=== PATIENT | female | born 1950 | race Caucasian/White ===

== ENCOUNTER 2017-04-05 16:51 | Emergency (ER) | payer MEDICARE, OTHER ==
--- NOTE | 2017-04-05 17:13 | ERPHSYRPT ---
- History of Present Illness Time Seen by Provider: 04/05/17 17:10 Source: patient, family Exam Limitations: no limitations Patient Subjective Stated Complaint: pt states she is currently being treated for bronhitis. pt states coughing became worse last pm. states she has had fever an chills. Triage Nursing Assessment: pt pink, warm, moist to touch. lung sounds clear and equal. pt afebrile. Physician History: The patient is a 67-year-old female with her complaining of a cough for about one week. Her illness began about a week ago was feeling very achy. It then progressed to a cough. She saw her medical doctor and was given doxycycline and prednisone 3 days ago. She's had a very difficult time sleeping at night because of the cough. She also states she's had a fever with this as well as sweats. She uses a sleep apnea machine at night. Her past medical history is also significant for GERD and high cholesterol. She did receive an influenza vaccination this year. Timing/Duration: week(s) (1) Cough Quality/Degree: moderate, dry cough Possible Cause: occasional episodes Modifying Factors: Improves With: coughing Associated Symptoms: fever, chills, muscle aches Allergies/Adverse Reactions: penicillin Allergy (Intermediate, Verified 04/05/17 16:58) Hives Home Medications: Aspirin 81 mg PO DAILY 05/23/15 [History] Atorvastatin Calcium 20 mg PO DAILY 05/23/15 [History] Glucosamine HCl/Gluc Bond [Glucosamine Complex Caplet] 1 each PO DAILY 05/23/15 [ History] Multivitamin [Multivitamins] 1 cap PO DAILY 05/23/15 [History] Naproxen Sodium 220 mg [Aleve 220 MG] 0 mg PO DIRECTIONS UNKNOWN 05/23/15 [History] Pantoprazole Sodium [Protonix] 20 mg PO DAILY 05/23/15 [History] Calcium Carbonate/Vitamin D3 [Calcium 500 + Vit D Caplet] 1 each PO DAILY [History] Doxycycline Hyclate 100 mg [Vibramycin 100 MG] 100 mg PO BID 04/05/17 [ History] Furosemide 20 mg [Lasix 20 mg] 20 mg PO UD 04/05/17 [History] [place]-3/Dha/Epa/Fish Oil [[place]-3 Fish Oil 1,200 mg Sfgl] 1,200 mg PO DAILY [History] Prednisone 20 mg [Deltasone 20 mg] 20 mg PO UD 04/05/17 [History] Zinc 15 mg PO DAILY 04/05/17 [History] Hx Tetanus, Diphtheria Vaccination/Date Given: Yes (unnown) Hx Influenza Vaccination/Date Given: No Hx Pneumococcal Vaccination/Date Given: No Immunizations Up to Date: No - Review of Systems Constitutional: Fever, Chills Eyes: No Symptoms Ears, Nose, & Throat: No Symptoms Respiratory: Cough, No Dyspnea Cardiac: No Chest Pain, No Edema, No Syncope Abdominal/Gastrointestinal: No Abdominal Pain, No Nausea, No Vomiting, No Diarrhea Genitourinary Symptoms: No Dysuria Musculoskeletal: No Back Pain, No Neck Pain Skin: No Rash Neurological: No Dizziness, No Focal Weakness, No Sensory Changes Psychological: No Symptoms Endocrine: No Symptoms Hematologic/Lymphatic: No Symptoms Immunological/Allergic: No Symptoms All Other Systems: Reviewed and Negative - Past Medical History Pertinent Past Medical History: Yes Neurological History: No Pertinent History ENT History: No Pertinent History Cardiac History: High Cholesterol Respiratory History: Other Endocrine Medical History: No Pertinent History Musculoskeletal History: Arthritis GI Medical History: No Pertinent History History: No Pertinent History Psycho-Social History: No Pertinent History Female Reproductive Disorders: Breast Cancer Other Medical History: SOB-Currently investigating C-PAP , states has never taken her albuterol "in process of dx lethargy" - Past Surgical History Past Surgical History: Yes Neuro Surgical History: No Pertinent History Cardiac: Cardiac Catheterization Respiratory: No Pertinent History Female Surgical History: Lumpectomy, Tubal Ligation Other Surgical History: T&A, D&C, oral surgery - Social History Smoking Status: Former smoker Exposure to second hand smoke: No Drug Use: none Patient Lives Alone: No - Nursing Vital Signs Nursing Vital Signs: Initial Vital Signs Temperature 99.1 F Temperature Source Oral Pulse Rate 75 Respiratory Rate 18 Blood Pressure [] 136/84 Pain Intensity 0 - Physical Exam General Appearance: no apparent distress, alert Eye Exam: PERRL/EOMI, eyes nml inspection Ears, Nose, Throat Exam: normal ENT inspection, TMs normal, pharynx normal, moist mucous membranes Neck Exam: normal inspection, non-tender, supple, full range of motion Respiratory Exam: normal breath sounds, lungs clear, No respiratory distress Cardiovascular Exam: regular rate/rhythm, normal heart sounds Gastrointestinal/Abdomen Exam: soft, No tenderness Pelvic Exam: not done Rectal Exam: not done Back Exam: normal inspection, No CVA tenderness, No vertebral tenderness Extremity Exam: normal inspection, normal range of motion Neurologic Exam: alert, oriented x 3, cooperative, normal mood/affect, sensation nml, No motor deficits Skin Exam: normal color, warm, dry, No rash Lymphatic Exam: No adenopathy SpO2 Interpretation: normal SpO2: 94 Oxygen Delivery: Room Air - Radiology Exams Chest X-ray Interpretation: Interpreted by me, Negative (no change comp CXR 03/20/17) Ordered Tests: Active Orders 24 hr Category Date Time Status CHEST 2 VIEWS (PA AND LAT) Stat Exams 04/05/17 17:13 Taken Medication Summary Discontinued Medications Generic Name Dose Route Start Last Admin Trade Name Freq PRN Reason Stop Dose Admin Benzonatate 100 mg 04/05/17 17:19 04/05/17 17:33 Tessalon Perles 100 Mg PO 04/05/17 17:20 100 mg TID PRN STA Administration Benzonatate Confirm 04/05/17 17:29 Tessalon Perles 100 Mg Administered 04/05/17 17:30 Dose 100 mg PO .STK-MED ONE Lab/Rad Data: Laboratory Results 04/05/17 Range/Units 17:22 Influenza Type A Ag NEGATIVE (NEGATIVE) Influenza Type B Ag POSITIVE (NEGATIVE) RSV (PCR) NEGATIVE (Negative) - Progress Counseled pt/family regarding: lab results - Departure Time of Disposition: 18:33 Departure Disposition: Home Clinical Impression: Influenza B Condition: Stable Critical Care Time: No Additional Instructions: You have an upper respiratory tract infection caused by the virus influenza B. Stopped taking the antibiotic. Continue with the prednisone as directed. Take Tessalon Perles 100 mg every 8 hours as needed for cough. Take Tylenol and ibuprofen as needed. Follow-up as needed. Prescriptions: Benzonatate [Tessalon Perle] 100 mg PO Q8H PRN PRN #12 capsule PRN Reason: Cough
[2017-04-05] MEDS ORDERED: Tessalon Perles 100 MG PO STA (17:19)
[2017-04-05] MEDS ORDERED: Tessalon Perles 100 MG PO ONE (17:29)
[2017-04-05 18:02] VITALS: BP 136/84; PULSE 75
[2017-04-05 18:46] VITALS: O2SAT 99
--- NOTE | 2017-04-05 20:30 | XRAY ---
Indication: Cough. Comparison: March 20, 2017. PA/lateral chest again hyperinflated. No focal infiltrate, consolidation, or large effusion. Heart and mediastinal structures stable and within normal limits. Bony thorax intact again with minimal spinal degenerative changes and right axillary shoa dissection. Impression: Nonacute chest with chronic features.
== END 2017-04-05 18:43 | disposition home or self-care (01) ==
LOC: SUPCPDRO 16:51 → ED 16:51
DX: J11.1 Influenza due to unidentified influenza virus with other respiratory manifestations (principal); R05 Cough
CPT/HCPCS: 71020; 87631; 99283; A9270-GY

== ENCOUNTER 2018-08-27 07:53 | Day surgery (SDC) | payer MEDICARE, OTHER ==
[2018-08-27] MEDS ORDERED: VERSED 5 MG/5 ML IV ONE (07:54)
[2018-08-27] MEDS ORDERED: DEMEROL 50 MG SDV IJ ONE (07:54)
[2018-08-27] MEDS ORDERED: Lactated Ringers 1,000 ML IV ONE (08:24)
[2018-08-27] MEDS ORDERED: Lactated Ringers 1,000 ML IV SCH ×2 (08:30→09:30)
--- NOTE | 2018-08-27 12:07 | OP ---
SURGERY DATE/TIME: 08/27/2018 1111 PREOPERATIVE DIAGNOSIS: 1) Esophageal stricture with previous dilatation three months with suggestion of re-dilating it at this time. 2) Three year follow up polyps. POSTOPERATIVE DIAGNOSES: 1) Esophageal stricture with previous dilatation three months with suggestion of re-dilating it at this time. 2) Three year follow up polyps. PROCEDURES: 1) EGD with esophageal balloon dilatation size 54. 2) Colonoscopy. SURGEON: Tejinder Elizalde M.D. ANESTHESIA: IV sedation 30 minutes monitored. COMPLICATIONS: None. CONDITION: Stable. INDICATION: A patient requiring evaluation. DESCRIPTION OF PROCEDURE: Taken to endoscopy. Left lateral decubitus position. IV sedation titrated. Oximetry kept over 90%. The gastroscope placed. Pharyngoesophageal junction normal. Cords normal. Esophagus normal down to gastroesophageal junction. There was a rim of esophagitis grade II. There had been a previous stricture. Balloon insufflated to stage I to stage II and stage III. Just a little improvement with stage III. It was fully dilated with size 54. Fundus, body, antrum normal. No hiatal hernia. Pylorus satisfactory. Duodenal bulb satisfactory. Second portion satisfactory. Scope withdrawn and looped upon itself. Gastroesophageal junction satisfactory with no hiatal hernia. Scope withdrawn. Anal digital examination satisfactory. A very long meandering colon. Scope advanced to the cecum. Base of the cecum, appendiceal orifice was not seen. Ileocecal valve satisfactory, ascending, hepatic, transverse, splenic, descending, sigmoid, rectum, anus. IMPRESSION: Normal examination. PLAN: Follow up for polyps in three years.
[2018-08-27 12:49] VITALS: BP 104/64; PULSE 79; O2SAT 94
== END 2018-08-27 13:10 | disposition home or self-care (01) ==
LOC: SDC 07:53
PROVIDERS: ATTEND Surgery
DX: K22.2 Esophageal obstruction (principal); Z86.010 Personal history of colon polyps; Z09 Encounter for follow-up examination after completed treatment for conditions other than malignant neoplasm
CPT/HCPCS: 94250; C1726; J2175; J2250